=== PATIENT | male | born 1970 | race Caucasian/White ===

== ENCOUNTER 2019-07-02 10:21 | Emergency (ER) | payer SELFPAY ==
[2019-07-02 10:36] VITALS: BP 126/94; PULSE 96; TEMP 98.4; BMI 29.5
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
== END 2019-07-02 11:49 | disposition home or self-care (01) ==
LOC: JERFT 10:21
DX: Z48.817 Encounter for surgical aftercare following surgery on the skin and subcutaneous tissue (principal); Z48.02 Encounter for removal of sutures
CPT/HCPCS: 99281-25